=== PATIENT | male | born 1990 | race Caucasian/White ===

== ENCOUNTER 2017-04-17 18:25 | Emergency (ER) | payer BC, OTHER ==
[~2017-04-17] VITALS: Ht 180.3 cm; Wt 118.5 kg
[~2017-04-17 18:25] MED LIST: CITA40TA5 PO; MIRT7.5T8 PO
[2017-04-17] MEDS ORDERED: ONDANSETRON 2MG/ML, 2ML IVPush ONE (19:30)
[2017-04-17] MEDS ORDERED: MORPHINE SULFATE 4 MG/ML, 1ML IVPush PRN (19:30)
[2017-04-17] MEDS ORDERED: SODIUM CHLORIDE 0.9% 1,000ML IVBOLUS ONE (19:30)
[2017-04-17] MEDS ORDERED: SODIUM CHLORIDE FLUSH 10ML SYR IVF ONE (19:30)
[2017-04-17] MEDS ORDERED: MORPHINE SULFATE 4 MG/ML, 1ML ONE (19:42)
[2017-04-17] MEDS ORDERED: ONDANSETRON 2MG/ML, 2ML ONE (19:42)
[2017-04-17 19:47] LABS: BASOPHILS # (AUTO) 0.03 x10^3/uL (0-0.1); BASOPHILS % (AUTO) 0 % (0-1); EOSINOPHILS # (AUTO) 0.32 x10^3/uL (0-0.4); EOSINOPHILS % (AUTO) 2 % (1-7); LYMPHOCYTES # (AUTO) 1.71 x10^3/uL (1-3.4); LYMPHOCYTES % (AUTO) 13 % (22-44); MD NO; MEAN CORPUSCULAR HEMOGLOBIN 30.2 pg (27.5-34.5); MEAN CORPUSCULAR HGB CONC 34.3 g/dL (33.2-36.2); MEAN CORPUSCULAR VOLUME 87.9 fL (81-97); MEAN PLATELET VOLUME 8.7 fL (7.4-10.4); MONOCYTES # (AUTO) 0.65 x10^3/uL (0.2-0.8); MONOCYTES % (AUTO) 5 % (2-9); NEUTROPHILS # (AUTO) 10.42 x10^3/uL (1.8-6.8); NEUTROPHILS % (AUTO) 79 % (42-75); PLATELET COUNT 295 x10^3/uL (130-400); RED BLOOD COUNT 5.31 x10^6/uL (4.38-5.82); RED CELL DISTRIBUTION WIDTH 12.4 % (9.4-14.8)
[2017-04-17 19:57] LABS: ALANINE AMINOTRANSFERASE 48 U/L (12-78); ALBUMIN 4.1 g/dL (3.4-5.0); ANION GAP 9 mmol/L (5-15); CHLORIDE 105 mmol/L (98-107); CREATININE 1.03 mg/dL (0.7-1.3)
[2017-04-17 20:00] LABS: ALKALINE PHOSPHATASE 67 U/L (45-117); BILIRUBIN,TOTAL 0.3 mg/dL (0.2-1.0); TOTAL PROTEIN 7.7 g/dL (6.4-8.2)
[2017-04-17 20:00] LABS: MICROSCOPIC NOT IND
[2017-04-17 20:05] LABS: CULTURE INDICATED? NO
[2017-04-17 20:37] VITALS: BP 123/78
[2017-04-17] MEDS ORDERED: OMNIPAQUE 350 MG/ML, 100ML BOTTLE ONE (23:30)
== END 2017-04-17 20:52 | disposition home or self-care (01) ==
LOC: ED 20:51
DX: R10.32 Left lower quadrant pain (principal)
CPT/HCPCS: 36415; 74177; 76870; 80053; 81003; 83690; 85025; 96361; 96374; 96375; 99285; J2405; J7030; Q9967

== ENCOUNTER 2020-05-19 08:18 | Emergency (ER) | payer BC ==
[~2020-05-19] VITALS: Ht 177.8 cm; Wt 107.9 kg
--- NOTE | 2020-05-19 08:28 | NUR ---
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
--- NOTE | 2020-05-19 08:30 | NUR ---
PATIENT WALKED BACK FROM TRIAGE WITH CHIEF C/O NAUSEA AND ANXIETY. PER PATIENT HAS BEEN EXPERIENCING "ADRENALINE RUSHES, ANXIETY AND NAUSEA X2 WEEKS." PATIENT HAS HISTORY OF ANXIETY AND TAKES LORAZEPAM, MEDICATION IS NOT WORKING, PATIENT REPORTS TAKING "20 1 MG TABLETS OF LORAZEPAM IN THE LAST 8 DAYS." GLENROY ARENAS, CALL LIGHT WITHIN REACH. Addendum: 05/19/20 at 0833 by KEWSI PATIENT ALSO REPORTS DIZZINESS AND LIGHTHEADEDNESS X2 WEEKS.
--- NOTE | 2020-05-19 08:33 | NUR ---
ERPA AT BEDSIDE FOR EVALUATION.
[2020-05-19] MEDS ORDERED: MECLIZINE CHEWABLE 25 MG TAB ONE (08:45)
[2020-05-19] MEDS ORDERED: ONDANSETRON 2MG/ML, 2ML ONE (08:45)
--- NOTE | 2020-05-19 08:57 | NUR ---
20 GAUGE IV STARTED LEFT AC, BLOOD COLLECTED AND SENT TO LAB, PATIENT MEDICATED PER [facility], CONNECTED TO [facility]PERVISOR [facility] DEPARTMENT, CALL LIGHT WITHIN REACH, NO FURTHER NEEDS AT THIS TIME.
[2020-05-19] MEDS ORDERED: ONDANSETRON ODT 4 MG PO ONE (09:00)
[2020-05-19] MEDS ORDERED: MECLIZINE CHEWABLE 25 MG TAB PO ONE (09:00)
[2020-05-19] MEDS ORDERED: ONDANSETRON 2MG/ML, 2ML IVPush ONE (09:00)
[2020-05-19] MEDS ORDERED: SODIUM CHLORIDE 0.9% 1,000ML IVBOLUS ONE (09:00)
[2020-05-19 09:07] LABS: BASOPHILS % (AUTO) 0 % (0-1); EOSINOPHILS % (AUTO) 3 % (1-7); LYMPHOCYTES % (AUTO) 20 % (22-44); MEAN CORPUSCULAR HEMOGLOBIN 30.4 pg (27.5-34.5); MEAN CORPUSCULAR HGB CONC 34.5 g/dL (33.2-36.2); MEAN PLATELET VOLUME 8.7 fL (7.4-10.4); MONOCYTES % (AUTO) 6 % (2-9); NEUTROPHILS % (AUTO) 70 % (42-75); PLATELET COUNT 258 x10^3/uL (130-400); RED BLOOD COUNT 5.34 x10^6/uL (4.38-5.82); RED CELL DISTRIBUTION WIDTH 13.1 % (9.4-14.8)
[2020-05-19 09:17] LABS: ALBUMIN 4.2 g/dL (3.4-5.0); ANION GAP 6 mmol/L (5-15); CALCIUM 9.3 mg/dL (8.5-10.1); CHLORIDE 106 mmol/L (98-107); CREATININE 1.04 mg/dL (0.7-1.3)
[2020-05-19 09:52] VITALS: BP 117/73
--- NOTE | 2020-05-19 10:13 | NUR ---
IV removed with tip intact. Patient given discharge instructions and prescriptions and they have confirmed that they understand the instructions. Patient stable and ambulatory with steady gait from ED to private vehicle, no belongings left in room.
== END 2020-05-19 10:14 | disposition home or self-care (01) ==
LOC: ED 09:45
DX: R42 Dizziness and giddiness (principal); R11.0 Nausea; Z79.82 Long term (current) use of aspirin
CPT/HCPCS: 36415; 80048; 82040; 85025; 93005; 99284; J2405; J7030